=== PATIENT | female | born 1985 | race Caucasian/White ===

== ENCOUNTER 2018-01-11 13:50 | Emergency (ER) | payer OTHER ==
[2018-01-11 13:55] VITALS: BMI 23.3
--- NOTE | 2018-01-11 14:26 | ED PDOC ---
HPI: Female Pain Time Seen by Provider: 01/11/18 14:07 Chief Complaint (Nursing): Female Genitourinary Chief Complaint (Provider): Vag bleeding History Per: Patient Additional Complaint(s): 32 @ 10 weeks who presents with vaginal bleeding. Pt was seen at hospital in [place] 6 weeks ago for vaginal bleeding, was told she was miscarrying. Pt has been bleeding since that time, used 8 tampons yesterday, was evaluated at [facility] ED, ultrasound showed 10 week IUP without hear beat. Pt followed up at Dr. Andrews's office today and passed large amount of tissue, advised to come to ED. Abnormal Vaginal Bleeding: Yes Last Menstral Period: 11/03/17 : 1 Para: 0 Past Medical History Reviewed: Nursing Documentation, Vital Signs Vital Signs: Last Vital Signs Temp 99.4 F 01/11/18 13:54 Pulse 67 01/11/18 13:54 Resp 17 01/11/18 13:54 BP 98/61 L 01/11/18 13:54 Pulse Ox 100 01/11/18 13:54 - Medical History PMH: No Chronic Diseases - Surgical History Surgical History: No Surg Hx - Family History Family History: States: Unknown Family Hx - Living Arrangements Living Arrangements: With Family - Social History Current smoker - smoking cessation education provided: No Alcohol: None - Allergies Allergies/Adverse Reactions: Allergies Allergy/AdvReac Type Severity Reaction Status Date / Time No Known Allergies Allergy Verified 01/11/18 14:07 Review of Systems Constitutional: Negative for: Fever Cardiovascular: Negative for: Chest Pain Respiratory: Negative for: Cough, Shortness of Breath Gastrointestinal: Negative for: Nausea, Vomiting, Abdominal Pain, Diarrhea Genitourinary Female: Positive for: Vaginal Bleeding. Negative for: Dysuria, Hematuria Skin: Negative for: Rash Neurological: Negative for: Headache, Dizziness Physical Exam - Reviewed Nursing Documentation Reviewed: Yes Vital Signs Reviewed: Yes - Physical Exam Appears: Positive for: Well, No Acute Distress Skin: Positive for: Normal Color, Warm, Dry Eye Exam: Positive for: Normal appearance, EOMI, PERRL Cardiovascular/Chest: Positive for: Regular Rate, Rhythm Respiratory: Positive for: Normal Breath Sounds Gastrointestinal/Abdominal: Positive for: Normal Exam, Bowel Sounds, Soft. Negative for: Tenderness Pelvic Exam: Positive for: External Exam Normal, Active Bleeding (Minimal), Blood, Other (No tissue visualized). Negative for: Discharge, Tender W/ Cervical Motion, Tender Uterus, Ulcers Neurologic/Psych: Positive for: Alert, Oriented - Laboratory Results Result Diagrams: 01/11/18 15:27 01/11/18 15:27 - ECG O2 Sat by Pulse Oximetry: 100 - Physician Consult Information Time Consulting Physican Contacted: 16:30 Physician Contacted: Hamilton Andrews Outcome Of Conversation: Case discussed, if os closed and no tissue in os can discharge home, follow-up in office in one week. Medical Decision Making Medical Decision Makin yo @ 10 weeks with vaginal bleeding. - labs - pelvic ultrasound 01/10/18: beta hCG ([facility]) = [id number] Accession No. : [id number] Patient Name / ID : LAURIE HOWARD / [id number] Exam Date : 01/11/2018 14:30:08 ( Approved ) Study Comment : Sex / Age : F / 32Y Creator : Amy Patel Dictator : Amy Patel Chrome Plater Helper : Sales Representative Gas Service : Amy Patel Approver2 : Report Date : 01/11/2018 15:21:34 My Comment : Date of service: 01/11/2018 HISTORY: Vag bleeding Vag bleeding. LMP 11/03/2017. status not known at this time COMPARISON: None TECHNIQUE: Transvaginal FINDINGS: UTERUS: Measures 9.3 x 5.4 x 5.9 cm. Normal in size and appearance. No fibroid or other mass lesion seen. ENDOMETRIUM: Measures 15 mm in diameter. And heterogeneous CERVIX: No cervical abnormality identified. RIGHT OVARY: Measures 2.9 x 2.1 x 3.0 cm. No solid mass. Normal flow. Small sub cm right follicular cyst noted LEFT OVARY: Measures 2.8 x 1.9 x 2 point de cm. No solid mass. Normal flow. Even smaller few were left ovarian follicular cysts are present FREE FLUID: No significant free fluid noted. OTHER FINDINGS: None. IMPRESSION: Thicken endometrium. No intrauterine gestation noted. Correlation with status recommended. Endometrial hyperplasia is 1 consideration. Prominent physiological changes are another. Neoplastic change not excluded- but believe less likely this 32-year-old female. Follow-up recommended Disposition - Clinical Impression Clinical Impression: Complete - Disposition Referrals: Hamilton Andrews DO [Staff Provider] - Disposition: Routine/Home Disposition Time: 17:57 Condition: STABLE Additional Instructions: FOLLOW-UP WITH DR. ANDREWS IN ONE WEEK FOR REEVALUATION. Instructions: Miscarriage Forms: [facility] ([place])
--- NOTE | 2018-01-11 15:23 | US ---
Date of service: 01/11/2018 HISTORY: Vag bleeding Vag bleeding. LMP 11/03/2017. status not known at this time COMPARISON: None TECHNIQUE: Transvaginal FINDINGS: UTERUS: Measures 9.3 x 5.4 x 5.9 cm. Normal in size and appearance. No fibroid or other mass lesion seen. ENDOMETRIUM: Measures 15 mm in diameter. And heterogeneous CERVIX: No cervical abnormality identified. RIGHT OVARY: Measures 2.9 x 2.1 x 3.0 cm. No solid mass. Normal flow. Small sub cm right follicular cyst noted LEFT OVARY: Measures 2.8 x 1.9 x 2 point de cm. No solid mass. Normal flow. Even smaller few were left ovarian follicular cysts are present FREE FLUID: No significant free fluid noted. OTHER FINDINGS: None. IMPRESSION: Thicken endometrium. No intrauterine gestation noted. Correlation with status recommended. Endometrial hyperplasia is 1 consideration. Prominent physiological changes are another. Neoplastic change not excluded- but believe less likely this 32-year-old female. Follow-up recommended
[2018-01-11 15:47] LABS: ALB/GLOB RATIO 1.3 (1.0-2.1); ALBUMIN 4.6 g/dL (3.5-5.0); ALT/SGPT 41 U/L (9-52); AST/SGOT 41 U/L (14-36); BLOOD UREA NITROGEN 14 mg/dl (7-17); CALCIUM 9.6 mg/dL (8.4-10.2); GFR AFRICAN-AMERICAN > 60; GFR NON-AFRICAN AMERICAN > 60
[2018-01-11 15:51] LABS: BASO % 0.3 % (0.0-2.0); EOS # 0.1 K/uL (0.0-0.7); EOS % 0.6 % (0.0-4.0); HEMOGLOBIN 11.8 g/dL (12.0-16.0); LYMPH # 1.6 K/uL (1.0-4.3); MEAN CELL VOLUME 98.8 fl (81.0-99.0); MEAN CORPUSCULAR HEMOGLOBIN 33.2 pg (27.0-31.0); MEAN CORPUSCULAR HGB CONC 33.6 g/dL (33.0-37.0); MEAN PLATELET VOLUME 8.7 fl (7.2-11.7); MONO % 7.7 % (0.0-10.0); NEUT # 10.5 K/uL (1.8-7.0); NEUT % 79.4 % (50.0-75.0); NRBC % 0.1 % (0.0-0.0); RBC 3.55 Mil/uL (3.80-5.20); RED CELL DISTRIBUTION WIDTH 13.2 % (11.5-14.5); WHITE BLOOD COUNT 13.3 K/uL (4.8-10.8)
[2018-01-11 16:14] LABS: URINE BILIRUBIN NEGATIVE (NEGATIVE); URINE BLOOD LARGE (NEGATIVE); URINE CLARITY SLIGHTY-CLOUDY (Clear); URINE COLOR YELLOW (YELLOW); URINE GLUCOSE (UA) NEG (Normal); URINE LEUKOCYTE ESTERASE NEG Leu/uL (Negative); URINE PROTEIN NEGATIVE (NEGATIVE); URINE UROBILINOGEN 0.2-1.0 mg/dL (0.2-1.0)
[2018-01-11 17:07] LABS: INR 1.1 (0.9-1.2); PROTHROMBIN TIME 12.4 Seconds (9.8-13.1)
[2018-01-11 18:34] VITALS: BP 120/70; PULSE 74; RESP 20; TEMP 98.3
[2018-01-11 22:54] VITALS: O2SAT 100
== END 2018-01-11 18:10 | disposition home or self-care (01) ==
LOC: H.ER 13:50
DX: O03.9 Complete or unspecified spontaneous abortion without complication (principal); Z3A.10 10 weeks gestation of pregnancy